=== PATIENT | female | born 1975 | race Caucasian/White ===

== ENCOUNTER → 2018-01-23 | Outpatient (CLI) | payer OTHER ==
--- NOTE | 2018-01-23 13:03 | RAD ---
Thyroid ultrasound, 01/23/2018: HISTORY: Thyroid nodules The right lobe of the gland measures 4.8 x 1.7 x 1.6 cm while the left lobe of the gland measures 4.0 x 1.6 x 1.2 cm. Multiple bilateral thyroid nodules are present. In the posterior aspect of the upper pole of the right lobe of the gland there is a 15 x 10 x 9 mm nodule. Its margins are smooth. It is slightly hypoechoic and heterogeneous. It is solid with internal color flow. It is wider than tall. In the anterior aspect of the upper pole of the right lobe of the gland there is a 15 x 12 x 8 mm smooth nodule which demonstrates cystic and solid compartments. It is wider than tall. Just inferior to this level in the posterior aspect of the midportion of the right lobe of the gland there is a septated cystic nodule measuring 14 x 9 x 10 mm. Its margins are smooth. In the lower pole of the right lobe of the gland there is a 17 x 15 x 9 mm solid nodule. It is slightly hypoechoic and heterogeneous. It is wider than tall. In the left lobe of the gland there is a 13 x 12 x 9 mm mixed cystic and solid nodule. Its margins are smooth. It is wider than tall. Several other scattered subcentimeter nodules are noted including a small 5 mm nodule in the right side of the isthmus. No calcifications or highly suspicious features are evident within these nodules. IMPRESSION: Multinodular thyroid gland as described above. The sonographic characteristics of these individual nodules are nonspecific. Ultrasound-guided biopsy of the largest nodule in the lower pole the right lobe of the gland may be useful for further evaluation. Sonographic surveillance would be a reasonable alternative. Electronically signed by: Howie Cohen MD (01/23/2018 1:00 PM) [facility]
== END | disposition home or self-care (01) ==
LOC: US 10:01
PROVIDERS: ATTEND Neuromusculoskeletal Medicine & OMM
DX: E04.2 Nontoxic multinodular goiter (principal)
CPT/HCPCS: 76536

== ENCOUNTER → 2018-02-14 | Outpatient (CLI) | payer OTHER ==
[~2018-02-14] MED LIST: 0.9 % SODIUM CHLORIDE 10 ML VIAL ONE; BUPIVACAINE MPF 0.25% 10 ML VIAL. ONE; DEXAMETHASONE SOD PHOS 10 MG/ML VIAL ONE; IOHEXOL 300 MG/ML 50 ML VIAL. ONE; LIDOCAINE 1% PF 2 ML VIAL. ONE
== END | disposition home or self-care (01) ==
LOC: SURG 13:20
PROVIDERS: ATTEND Anesthesiology Pain Medicine
DX: M54.12 Radiculopathy, cervical region (principal); E78.00 Pure hypercholesterolemia, unspecified; Z79.899 Other long term (current) drug therapy; D64.9 Anemia, unspecified; F17.210 Nicotine dependence, cigarettes, uncomplicated; Z98.890 Other specified postprocedural states
CPT/HCPCS: 62321; 64490; J1100; J3490; Q9967

== ENCOUNTER → 2021-07-30 | Outpatient (CLI) | payer OTHER ==
[~2021-07-30] MED LIST changes: -0.9 % SODIUM CHLORIDE 10 ML VIAL ONE; -BUPIVACAINE MPF 0.25% 10 ML VIAL. ONE; -DEXAMETHASONE SOD PHOS 10 MG/ML VIAL ONE; -IOHEXOL 300 MG/ML 50 ML VIAL. ONE; +IOHEXOL 300 MG/ML 75 ML VIAL. IV ONE; -LIDOCAINE 1% PF 2 ML VIAL. ONE
--- NOTE | 2021-07-30 10:35 | RAD ---
Study: CT abdomen/pelvis with intravenous contrast Indication: Abdominal pain. Comparison: None. Technique: Helical CT imaging performed of the abdomen and pelvis after the intravenous administratio n of 75 cc contrast. Sagittal and coronal reformats were obtained. One or more of the following individualized dose reduction techniques were utilized for this examinat ion: 1. Automated exposure control 2. Adjustment of the mA and/or kV according to patient size 3. Use of iterative reconstruction technique. Findings: Unremarkable visualized lungs and mediastinal contents. Mild hepatic steatosis. More pronounced localized fatty infiltration adjacent to the falciform ligame nt. Unremarkable gallbladder, biliary tree, pancreas, spleen and adrenal glands. Small area of ill-defined low-attenuation at the lateral aspect of the mid right kidney, image 22 ser ies 2 and image 37 series 3. Elsewhere renal parenchymal enhancement is relatively homogeneous. No si gnificant perinephric edema. No stone or hydronephrosis. Normal bladder wall thickness. Unremarkable uterus and adnexa. The majority of the distal colon is collapsed. No significant wall thickening or pericolonic inflamma tion proximal to the splenic flexure. No inflammatory changes at the expected location of the appendi x which is not well-visualized. No pathologic dilatation of small bowel. Unremarkable stomach. Calcified and noncalcified atheromatous plaque seen at the far distal abdominal aorta and involving t he iliac arteries. No lymphadenopathy by size criteria. No free fluid or pneumoperitoneum. Fat-contai aisha supraumbilical hernia without complicating features. No acute or aggressive osseous process. Mild thoracolumbar levocurvature. Mild discogenic arthrosis a t L5-S1. Osseous neural foraminal narrowing on the left at L5-S1 and minimally on the right at this l evel. Impression: 1. No acute abnormality identified throughout the abdomen or pelvis. A small area of low attenuation is seen at the lateral aspect of the mid right kidney but there are no ancillary findings that would indicate this relates to pyelonephritis. A small cyst is suspected. 2. Mild hepatic steatosis. 3. A few additional chronic observations described in the body. Electronically signed by: IAN CROWLEY MD (07/30/2021 10:32 AM) [id number]
== END ==
LOC: RAD 09:29
PROVIDERS: ATTEND Nurse Practitioner Family
DX: K76.0 Fatty (change of) liver, not elsewhere classified (principal); K42.9 Umbilical hernia without obstruction or gangrene; I70.0 Atherosclerosis of aorta; I70.8 Atherosclerosis of other arteries; M47.817 Spondylosis without myelopathy or radiculopathy, lumbosacral region; M48.07 Spinal stenosis, lumbosacral region
CPT/HCPCS: 74177; Q9967